=== PATIENT | male | born 1970 | race Caucasian/White ===

== ENCOUNTER 2020-03-02 17:45 | Emergency (ER) | payer BC ==
[~2020-03-02] VITALS: Ht 172.7 cm; Wt 89.2 kg
[2020-03-02] MEDS ORDERED: BOOSTRIX/ADACEL VACCINE (DIPHTH/PERTUSS/ACELL/TETANUS) 0.5ML SYR IM ONE (18:00)
[2020-03-02] MEDS ORDERED: LIDOCAINE 2% W/EPINEPHRINE 20ML VIAL **PRES FREE INJ ONE (18:00)
--- NOTE | 2020-03-02 18:24 | REPVR ---
PROCEDURE INFORMATION: Exam: XR Left Forearm Exam date and time: 03/02/2020 6:11 PM Age: 49 years old Clinical indication: Pain; Lower or forearm; Left; Additional info: Left forearm injury; R/O fx/fb TECHNIQUE: Imaging protocol: XR Left forearm. Views: 2 views. COMPARISON: No relevant prior studies available. FINDINGS: Bones/joints: Normal. Soft tissues: Normal. IMPRESSION: No acute findings. Electronically signed by: Kalen Tucker On 03/02/2020 18:24:11 PM
[2020-03-02] MEDS ORDERED: ONDANSETRON 4 MG ORAL DISINTEGRATING TAB PO ONE (18:30)
[2020-03-02] MEDS ORDERED: KEFL500C17 PO (19:39)
[2020-03-02] MEDS ORDERED: CEPHALEXIN 500 MG CAP PO ONE (19:45)
[2020-03-02 19:46] VITALS: BP 144/72
== END 2020-03-02 19:48 | disposition home or self-care (01) ==
LOC: M ED 17:45
DX: S51.812A Laceration without foreign body of left forearm, initial encounter (principal); W29.8XXA Contact with other powered hand tools and household machinery, initial encounter; Y92.019 Unspecified place in single-family (private) house as the place of occurrence of the external cause
CPT/HCPCS: 12004; 73090; 90471; 90715; 99283; Q0162